=== PATIENT | female | born 1970 | race Hispanic/Latino ===

== ENCOUNTER 2018-05-04 09:37 | Emergency (ER) | payer BC ==
[2018-05-04 09:58] VITALS: RESP 16; O2SAT 99; BMI 24.4
[2018-05-04] MEDS ORDERED: Tdap Vaccine 0.5 ml Vial (10-64 yrs) IM ONE ×2 (10:40→10:50)
--- NOTE | 2018-05-04 10:53 | ED PDOC ---
HPI: Trauma/Fall - HPI Time Seen by Provider: 05/04/18 10:06 Chief Complaint (Nursing): Trauma Chief Complaint (Provider): Trauma History Per: Patient, Family () History/Exam Limitations: no limitations Onset/Duration Of Symptoms: Days (x1), Sudden Onset Additional Complaint(s): 47 year old female with past history of anxiety, presents to the emergency department with at bedside, with complaints of head injury with facial abrasion and pain to bilateral knee status post fall earlier this morning. Patient states she was out with a friend then [place] [employer] [place] She struck her head against the curb but denies loss of consciousness or dizziness. Her reports that the patient appeared sober once she was home and [facility]. PCP: none provided Past Medical History Reviewed: Historical Data, Nursing Documentation, Vital Signs Vital Signs: Last Vital Signs Temp 98.4 F 05/04/18 09:55 Pulse 90 05/04/18 09:55 Resp 16 05/04/18 09:55 BP 167/84 H 05/04/18 09:55 Pulse Ox 99 05/04/18 09:55 - Medical History PMH: Anxiety, Gall Bladder Disease - Surgical History Surgical History: Cholecystectomy - Family History Family History: States: Unknown Family Hx - Social History Alcohol: Social - Immunization History Hx Tetanus Toxoid Vaccination: No Hx Influenza Vaccination: No Hx Pneumococcal Vaccination: No - Home Medications Home Medications: Ambulatory Orders Medication Instructions Recorded Clindamycin [Cleocin] 300 mg PO TID #30 cap 05/04/18 - Allergies Allergies/Adverse Reactions: Allergies Allergy/AdvReac Type Severity Reaction Status Date / Time Penicillins Allergy Severe URTICARIA Verified 05/04/18 10:37 Review of Systems ROS Statement: Except As Marked, All Systems Reviewed And Found Negative ENT: Positive for: Other (facial abrasions) Musculoskeletal: Positive for: Leg Pain (bilateral knees) Neurological: Negative for: Dizziness, Other (LOC) Physical Exam - Reviewed Nursing Documentation Reviewed: Yes Vital Signs Reviewed: Yes - Physical Exam Appears: Positive for: No Acute Distress Head Exam: Positive for: ATRAUMATIC, NORMAL INSPECTION, NORMOCEPHALIC Skin: Positive for: Normal Color Eye Exam: Positive for: EOMI, PERRL, Periorbital tenderness (upper/lower left- sided with ecchymosis) ENT: Positive for: TM Is/Are (clear bilaterally. nonerythematous and nonbulging), Other (indurated nasal seputm with tenderness and dried blood in left nare. right nare is clear. ecchymosis to lower left lip with open cuts on inside. dentnetion ) Neck: Positive for: Normal, Painless ROM (no rigidity or posterior cervical tenderness), Supple Cardiovascular/Chest: Positive for: Regular Rate, Rhythm Respiratory: Positive for: Normal Breath Sounds. Negative for: Respiratory Distress Extremity: Positive for: Normal ROM (upper/lower), Other (right knee abrasion). Negative for: Deformity (upper/lower), Swelling (right knee) Neurological/Psych: Positive for: Awake, Alert, Normal Tone, Oriented (x3). Negative for: Motor/Sensory Deficits - ECG O2 Sat by Pulse Oximetry: 99 (RA) Pulse Ox Interpretation: Normal Medical Decision Making Medical Decision Making: Time: 1040 Initial Plan: * CT head * CT orbits/facial * Urine * Adacel 0.5ml IM * Ativan 0.5mg PO Scribe Attestation: Documented by Sheila Mackey, acting as a scribe for Yenni Gutiérrez MD. Provider Scribe Attestation: All medical record entries made by the Scribe were at my direction and personally dictated by me. I have reviewed the chart and agree that the record accurately reflects my personal performance of the history, physical exam, medical decision making, and the department course for this patient. I have also personally directed, reviewed, and agree with the discharge instructions and disposition. Disposition - Clinical Impression Clinical Impression: Nasal fracture, Nasal septal hematoma - Patient ED Disposition Is Patient to be Admitted: No Doctor Will See Patient In The: Office Counseled Patient/Family Regarding: Diagnosis, Need For Followup, Rx Given - Disposition Referrals: Mynor Blas MD [Staff Provider] - Disposition: Routine/Home Disposition Time: 15:00 Condition: STABLE Prescriptions: Clindamycin [Cleocin] 300 mg PO TID #30 cap Instructions: Nose Fracture, Contusion (DC) Forms: [facility] (Bulgarian) - POA Present On Arrival: Falls Or Trauma
--- NOTE | 2018-05-04 12:37 | CT ---
Date of service: 05/04/2018 PROCEDURE: CT MAXILLOFACIAL BONES WITHOUT CONTRAST HISTORY: Head trauma COMPARISON: Comparison made with concurrent CT scan brain TECHNIQUE: Contiguous axial CT images of the maxillofacial bones were obtained. Coronal and sagittal reformats were generated. Radiation dose: Total exam DLP = 711.58 mGy-cm. This CT exam was performed using one or more of the following dose reduction techniques: Automated exposure control, adjustment of the mA and/or kV according to patient size, and/or use of iterative reconstruction technique. FINDINGS: NASAL BONES: Apparent minimally displaced fracture anterior tip of the right nasal bones There is a rounded hyperdense soft tissue mass within the subcutaneous tissues of the left medial nares and apparently contiguous with the left anterior nasal septum. Findings probably represent a large hematoma. ENT consultation recommended. Bony orbits. As mentioned above, there is soft tissue swelling that also extends over the upper nasal bones and into the bridge of the nose and glabella region. There is some lateral extension of swelling into the pre maxillary soft tissues left greater than right.. There appears to be a ORBITS: Unremarkable. PARANASAL SINUSES/ MASTOIDS: There is subtotal opacification left maxillary antrum presumably secondary to a large mucous retention cyst. Small mucous retention cyst right maxillary antrum. Note that the frontal sinus is slightly underpneumatized MAXILLA: Unremarkable. MANDIBLE/ TEMPOROMANDIBULAR JOINTS: Unremarkable. SKULL BASE: Unremarkable. TEMPORAL BONES: Middle ears and mastoid grossly unremarkable. OTHER FINDINGS: None. IMPRESSION: Minimally displaced fracture anterior tip right nasal bones which is associated with a hematoma in the left anterior nares that also appears to involve the left anterior nasal septum. ENT consultation is recommended. Mild soft tissue swelling is also seen overlying the nasal bones extends superiorly into the bridge of the nose and glabella region.. Infiltration and swelling extends medially into the pre maxillary soft tissues left greater than right. Bilateral maxillary sinus mucous retention cyst left larger than right. Findings discussed with Dr. Gutiérrez at approximately 12:32 p.m. with written down and read back verification.
--- NOTE | 2018-05-04 12:49 | CT ---
Date of service: 05/04/2018 PROCEDURE: CT HEAD WITHOUT CONTRAST. HISTORY: Head trauma COMPARISON: None available. TECHNIQUE: Axial computed tomography images were obtained through the head/brain without intravenous contrast. Radiation dose: Total exam DLP = 762.3 mGy-cm. This CT exam was performed using one or more of the following dose reduction techniques: Automated exposure control, adjustment of the mA and/or kV according to patient size, and/or use of iterative reconstruction technique. FINDINGS: HEMORRHAGE: No acute parenchymal, subarachnoid or extra-axial hemorrhage. BRAIN: Suspect minimal chronic periventricular white matter ischemic changes. Mild central volume loss evidenced by slight disproportionate enlargement of the ventricles as compared sulci. No obvious parenchymal nor extra-axial masses or collections seen on this noncontrast study. VENTRICLES: Unremarkable. No hydrocephalus. CALVARIUM: Unremarkable. PARANASAL SINUSES: Redemonstrated is subtotal opacification of the left maxillary antrum presumably by a large mucous retention cyst. MASTOID AIR CELLS: Unremarkable as visualized. No inflammatory changes. OTHER FINDINGS: None. IMPRESSION: No acute intracranial hemorrhage. Suspect minimal chronic periventricular white matter ischemic changes. Mild central volume loss. There is soft tissue swelling over the bridge of the nose extending superiorly into the glabella region.
[2018-05-04] MEDS ORDERED: Lidocaine 2% w Epi 1:100,000 Inj IJ ONE (14:03)
[2018-05-04] MEDS ORDERED: Povidone Iodine Topical 10% Sol ONE (14:35)
[2018-05-04 15:30] VITALS: TEMP 98.3
[2018-05-04 15:38] VITALS: BP 138/76; PULSE 80
--- NOTE | 2018-05-04 16:42 | CP.PCM.PN ---
Subjective - Date & Time of Evaluation Date of Evaluation: 05/04/18 Time of Evaluation: 16:29 - Subjective Subjective: see below Objective - Vital Signs/Intake and Output Vital Signs (last 24 hours): Temp Pulse Resp BP Pulse Ox 98.3 F 80 16 138/76 99 05/04/18 13:00 05/04/18 15:20 05/04/18 13:00 05/04/18 15:20 05/04/18 15:20 Assessment and Plan - Assessment and Plan (Free Text) Assessment: ENT Consult CC nasal trauma HPI 47 y/o female tripped and fell last night and hit face. she developed swelling after the injury and came to ER this morning for further evaluation. mild pain for which she took some Motrin Past Medical History denies Meds Paxil ROS see HPI Exam awake, alert, comfortable oc/op clear neck soft face: mild external nasal swelling diffusely. some bruising of the columella; no septal hematoma; there is soft tissue swelling of the inside of the left nostril that is minimally tender. this swelling does not extend onto the septum (i.e., it is separate from the septum). given the CT report of "hematoma," i elected to put a needle into this area of swelling. informed consent was obtained. i prepped the inside and outside of the nose with betadine and then injected a small amount of Lidocaine 1% with Epi 1:100k. I then re-prepped with betadine and passed a sterile 18g needle on a syringe into the area of soft tissue swelling; no blood or fluid was aspirated. I repeated this at an adjacent site, and again did not encounter any blood or fluid. No comp lications. Patient tolerated procedure well.
== END 2018-05-04 15:20 | disposition home or self-care (01) ==
LOC: H.ER 09:37
DX: S02.2XXA Fracture of nasal bones, initial encounter for closed fracture (principal); S00.33XA Contusion of nose, initial encounter; W18.39XA Other fall on same level, initial encounter; Z88.0 Allergy status to penicillin; Z23 Encounter for immunization